=== PATIENT | male | born 1980 | race African-American/Black ===

== ENCOUNTER 2023-04-19 22:35 | Emergency (ER) | payer MEDICAID ==
[~2023-04-19] VITALS: Ht 185.4 cm; Wt 106.6 kg
[2023-04-20 00:04] VITALS: TEMP 98
[2023-04-20 03:18] VITALS: BP 151/99; O2SAT 98
== END 2023-04-20 03:19 | disposition home or self-care (01) ==
LOC: ER 22:43
DX: S46.212A Strain of muscle, fascia and tendon of other parts of biceps, left arm, initial encounter (principal); X50.0XXA Overexertion from strenuous movement or load, initial encounter; Y93.89 Activity, other specified; Y92.89 Other specified places as the place of occurrence of the external cause; Y99.8 Other external cause status
CPT/HCPCS: 73200-TC